=== PATIENT | male | born 1995 | race African-American/Black ===

== ENCOUNTER 2020-06-21 15:58 | Emergency (ER) | payer OTHER ==
--- OUTSIDE RECORDS SUMMARY | 2020-06-21 16:00 | XMS REPORT | Continuity of Care Document ---
:1995 Author Organization [facility] t Address [address] [place] [address] Care Team Providers Name Role Phone Juan BETANCOURT Attending Clinician Problems This patient has no known problems. Allergies, Adverse Reactions, Alerts This patient has no known allergies or adverse reactions. Medications This patient has no known medications. Procedures This patient has no known procedures. Encounters Start End Encounter Admission Attending Care Care Encounter Source Date/Time Date/Time Type Type Clinicians Facility Department ID 2019-03-21 2019-03-21 Office Juan [facility] [id number] 15:09:51 15:38:10 Visit [facility] [id number] [place] [id number] Matt [phone] nal 044 Office Building One Results This patient has no known results.
[2020-06-21 16:31] LABS: Absolute Lymphocytes (CBC) 4.9 K/uL (0.7-4.9); Hematocrit 46.9 % (39.6-49.0); Lymphocytes % 41.1 % (15.3-44.8); MPV 9.3 fL (7.6-11.3); RBC Red Blood Cell Count 5.87 M/uL (4.33-5.43)
[2020-06-21] MEDS ORDERED: NA CHLORIDE 0.9% 1,000 ML ONE (16:41)
[2020-06-21 16:53] LABS: ALT/SGPT 49 U/L (12-78); AST/SGOT 20 U/L (15-37); Albumin 4.2 g/dL (3.4-5.0); Alkaline Phosphatase 81 U/L (45-117); BUN Blood Urea Nitrogen 13 mg/dL (7-18); Bicarbonate 27 mmol/L (21-32); Bilirubin Direct < 0.1 mg/dL (0-0.2); Bilirubin Total 0.3 mg/dL (0.2-1.0); Glucose Level 98 mg/dL (74-106); Lipase 285 U/L (73-393); Potassium 3.6 mmol/L (3.5-5.1); Protein, Total 8.1 g/dL (6.4-8.2); Sodium Level 140 mmol/L (136-145)
--- NOTE | 2020-06-21 18:58 | RAD REPORT ---
EXAM DESCRIPTION: CTAbdomen Pelvis W Contrast - 06/21/2020 6:34 pm CLINICAL HISTORY: Abdominal pain. ABD PAIN COMPARISON: No comparisons TECHNIQUE: Biphasic CT imaging of the abdomen and pelvis was performed with 100 ml non-ionic IV cont rast. All CT scans are performed using dose optimization technique as appropriate and may include automated exposure control or mA/KV adjustment according to patient size. FINDINGS: The lung bases are clear. The liver, spleen, pancreas, adrenal glands and kidneys are within normal limits. No bowel obstruction, free air, free fluid or abscess. Small fat containing umbilical hernia. The gertrude endix is normal. No evidence of significant lymphadenopathy. No suspicious bony findings. IMPRESSION: No acute intra-abdominal or pelvic finding.
--- NOTE | 2020-06-21 19:46 | ER ---
Nurse's Notes [facility] Name: Jai Becker Age: 25 yrs Sex: Male : 1995 Arrival Date: 06/21/2020 Time: 16:00 Bed External Waiting [facility] MD: Diagnosis: Generalized abdominal pain Presentation: 06/21 16:13 Chief complaint: upper abdominal pain x 5 days, unrelieved by Miralax and Pepto x 1. hb Also reports one episode of black stool 2 days ago. Coronavirus screen: At this time, the client does not indicate any symptoms associated with coronavirus-19. Ebola Screen: No symptoms or risks identified at this time. Initial Sepsis Screen: Does the patient meet any 2 criteria? No. Patient's initial sepsis screen is negative. Does the patient have a suspected source of infection? No. Patient's initial sepsis screen is negative. Risk Assessment: Do you want to hurt yourself or someone else? Patient reports no desire to harm self or others. Onset of symptoms was June 16, 2020. 16:13 Method Of Arrival: Ambulatory 16:13 Acuity: ANGELI 3 hb Historical: - Allergies: 16:15 No Known Allergies; hb - Home Meds: 16:15 None [Active]; hb - PMHx: 16:15 None; hb - PSHx: 16:15 None; hb - Immunization history:: Adult Immunizations up to date. - Social history:: Smoking status: Patient denies any tobacco usage or history of. Screenin:08 Abuse screen: Denies threats or abuse. Nutritional screening: No deficits noted. tw2 Tuberculosis screening: No symptoms or risk factors identified. Fall Risk None identified. Assessment: 16:20 General: Appears in no apparent distress. obese, well groomed, Behavior is calm, tw2 cooperative, appropriate for age. Pain: Complains of pain in right upper quadrant and left upper quadrant. Neuro: Level of Consciousness is awake, alert, obeys commands, Oriented to person, place, time, situation. Cardiovascular: Heart tones S1 S2 Capillary refill < 3 seconds Patient's skin is warm and dry. Respiratory: Airway is patent Respiratory effort is even, unlabored, Respiratory pattern is regular, symmetrical, Breath sounds are clear bilaterally. GI: Bowel sounds present X 4 quads. Abd is soft X 4 quads Reports upper abdominal pain. : No signs and/or symptoms were reported regarding the genitourinary system. EENT: No signs and/or symptoms were reported regarding the EENT system. Derm: No signs and/or symptoms reported regarding the dermatologic system. Musculoskeletal: Range of motion: intact in all extremities. 16:54 Reassessment: notified MARLYS Pete tech pt completed drinking oral contrast at this time. tw2 16:56 Reassessment: Patient appears in no apparent distress at this time. No changes from tw2 previously documented assessment. Patient and/or family updated on plan of care and expected duration. Pain level reassessed. Patient is alert, oriented x 3, equal unlabored respirations, skin warm/dry/pink. 18:21 Reassessment: pt in imaging at this time. tw2 18:52 Reassessment: Patient appears in no apparent distress at this time. No changes from tw2 previously documented assessment. Patient and/or family updated on plan of care and expected duration. Pain level reassessed. Patient is alert, oriented x 3, equal unlabored respirations, skin warm/dry/pink. Vital Signs: 16:13 BP 144 / 79; Pulse 97; Resp 16; Temp 97.9; Pulse Ox 98% on R/A; Pain 8/10; hb 16:57 BP 133 / 82; Pulse 98; Resp 20; Pulse Ox 99% on R/A; tw2 18:52 BP 142 / 89; Pulse 79; Resp 17; Pulse Ox 99% on R/A; tw2 ED Course: 16:00 Patient arrived in ED. as 16:07 [facility]C [facility] snw 16:07 Oscar Kaplan MD is Attending Physician. snw 16:08 Bed in low position. Call light in reach. Pulse ox on. NIBP on. tw2 16:08 Arm band placed on. tw2 16:13 Warm blanket given. Pillow given. mh5 16:15 Triage completed. hb 16:25 Tania Simon RN is Primary Nurse. tw2 16:25 Inserted saline lock: 22 gauge in right antecubital area, using aseptic technique. tw2 Blood collected. Missed attempt(s): 20 gauge in left antecubital area. Bleeding controlled, band aid applied, catheter tip intact. 18:33 CT Abd/Pelvis - PO and IV Contrast In Process Unspecified. EDMS 19:00 Report given to FritzRN, Bobbi,RN, and MARGARITO Yeh. tw2 Administered Medications: 16:31 Drug: NS 0.9% 1000 ml Route: IV; Rate: 125 ml/hr; Site: right antecubital; tw2 Outcome: 19:45 Discharge ordered by MD. truong 20:28 Patient left the ED. sg Signatures: Dispatcher [employer] EDMS Benny Chowdary RN RN sg Kianna Bernabe, CLINICAL ACADEMIC ALLERGIST-C CLINICAL ACADEMIC ALLERGIST-Brandonw Kathleen Flood as Lucila Ayon RN RN Tania Simon RN RN 2 Melvi Flood [facility]
--- NOTE | 2020-06-21 19:46 | EDPHYS ---
Physician Documentation [facility] Name: Jai Becker Age: 25 yrs Sex: Male : 1995 Arrival Date: 06/21/2020 Time: 16:00 Bed External Waiting Private MD: ED Physician Oscar Kaplan HPI: 06/21 16:19 This 25 yrs old Black Male presents to ER via Ambulatory with complaints of Abdominal snw Pain. 16:19 The patient presents with abdominal pain in the periumbilical area. Onset: The snw symptoms/episode began/occurred gradually, 4 day(s) ago, and became persistent. The symptoms do not radiate. Associated signs and symptoms: none. The symptoms are described as crampy. Severity of pain: At its worst the pain was moderate. The patient has not experienced similar symptoms in the past. The patient has not recently seen a physician. Historical: - Allergies: 16:15 No Known Allergies; hb - Home Meds: 16:15 None [Active]; hb - PMHx: 16:15 None; hb - PSHx: 16:15 None; hb - Immunization history:: Adult Immunizations up to date. - Social history:: Smoking status: Patient denies any tobacco usage or history of. ROS: 16:19 Constitutional: Negative for fever, chills, and weight loss, Eyes: Negative for injury, snw pain, redness, and discharge, ENT: Negative for injury, pain, and discharge, Neck: Negative for injury, pain, and swelling, Cardiovascular: Negative for chest pain, palpitations, and edema, Respiratory: Negative for shortness of breath, cough, wheezing, and pleuritic chest pain, Back: Negative for injury and pain, : Negative for injury, bleeding, discharge, and swelling, MS/Extremity: Negative for injury and deformity, Skin: Negative for injury, rash, and discoloration, Neuro: Negative for headache, weakness, numbness, tingling, and seizure, Psych: Negative for depression, anxiety, suicide ideation, homicidal ideation, and hallucinations. 16:19 Abdomen/GI: Positive for abdominal pain, constipation, Negative for nausea, vomiting, and diarrhea. Exam: 16:18 Constitutional: This is a well developed, well nourished patient who is awake, alert, snw and in no acute distress. Head/Face: Normocephalic, atraumatic. Eyes: Pupils equal round and reactive to light, extra-ocular motions intact. Lids and lashes normal. Conjunctiva and sclera are non-icteric and not injected. Cornea within normal limits. Periorbital areas with no swelling, redness, or edema. ENT: Nares patent. No nasal discharge, no septal abnormalities noted. Tympanic membranes are normal and external auditory canals are clear. Oropharynx with no redness, swelling, or masses, exudates, or evidence of obstruction, uvula midline. Mucous membranes moist. Neck: Trachea midline, no thyromegaly or masses palpated, and no cervical lymphadenopathy. Supple, full range of motion without nuchal rigidity, or vertebral point tenderness. No Meningismus. Chest/axilla: Normal chest wall appearance and motion. Nontender with no deformity. No lesions are appreciated. Respiratory: Lungs have equal breath sounds bilaterally, clear to auscultation and percussion. No rales, rhonchi or wheezes noted. No increased work of breathing, no retractions or nasal flaring. Back: No spinal tenderness. No costovertebral tenderness. Full range of motion. Skin: Warm, dry with normal turgor. Normal color with no rashes, no lesions, and no evidence of cellulitis. MS/ Extremity: Pulses equal, no cyanosis. Neurovascular intact. Full, normal range of motion. Neuro: Awake and alert, GCS 15, oriented to person, place, time, and situation. Cranial nerves II-XII grossly intact. Motor strength 5/5 in all extremities. Sensory grossly intact. Cerebellar exam normal. Normal gait. Psych: Awake, alert, with orientation to person, place and time. Behavior, mood, and affect are within normal limits. 16:18 Cardiovascular: Rate: tachycardic, Rhythm: regular, Pulses: no pulse deficits are appreciated. 16:18 Abdomen/GI: Inspection: abdomen appears normal, Bowel sounds: hyperactive, in the right lower quadrant and left lower quadrant, Palpation: soft, mild abdominal tenderness, in the umbilical area. Vital Signs: 16:13 BP 144 / 79; Pulse 97; Resp 16; Temp 97.9; Pulse Ox 98% on R/A; Pain 8/10; hb 16:57 BP 133 / 82; Pulse 98; Resp 20; Pulse Ox 99% on R/A; tw2 18:52 BP 142 / 89; Pulse 79; Resp 17; Pulse Ox 99% on R/A; tw2 MDM: 16:07 Patient medically screened. snw 19:51 Data reviewed: vital signs, nurses notes. Data interpreted: Pulse oximetry: on room air snw is 99 %. Interpretation: normal. Counseling: I had a detailed discussion with the patient and/or guardian regarding: the historical points, exam findings, and any diagnostic results supporting the discharge/admit diagnosis, the presence of at least one elevated blood pressure reading (>120/80) during this emergency department visit, lab results, radiology results, the need for outpatient follow up, to return to the emergency department if symptoms worsen or persist or if there are any questions or concerns that arise at home. Special discussion: Based on the history and exam findings, there is no indication for further emergent testing or inpatient evaluation. I discussed with the patient/guardian the need to see the primary care provider for further evaluation of the symptoms. 06/21 16:10 Order name: Basic Metabolic Panel; Complete Time: 16:53 snw 06/21 16:10 Order name: CBC with Diff; Complete Time: 16:37 snw 06/21 16:10 Order name: Hepatic Function; Complete Time: 16:53 snw 06/21 16:10 Order name: Lipase; Complete Time: 16:53 snw 06/21 16:10 Order name: IV Saline Lock; Complete Time: 16:26 snw 06/21 16:10 Order name: Labs collected and sent; Complete Time: 16:26 snw 06/21 16:37 Order name: CT Abd/Pelvis - PO and IV Contrast; Complete Time: 19:16 snw Administered Medications: 16:31 Drug: NS 0.9% 1000 ml Route: IV; Rate: 125 ml/hr; Site: right antecubital; tw2 Disposition: 06/22 07:13 Co-signature as Attending Physician, Oscar Kaplan MD. rn Disposition: 06/21/20 19:45 Discharged to Home. Impression: Generalized abdominal pain. - Condition is Stable. - Discharge Instructions: Abdominal Pain, Adult, Rehydration, Adult, Craig Diet. - Prescriptions for Bentyl 20 mg Oral Tablet - take 1 tablet by ORAL route every 6 hours As needed; 20 tablet. promethazine 25 mg Oral Tablet - take 1 tablet by ORAL route every 6 hours As needed; 20 tablet. - Work release form, Medication Reconciliation Form, Thank You Letter, Antibiotic Education, Prescription Opioid Use form. - Follow up: Emergency Department; When: As needed; Reason: Worsening of condition. Follow up: Private Physician; When: 2 - 3 days; Reason: Recheck today's complaints, Continuance of care, Re-evaluation by your physician. Signatures: Dispatcher [employer] EDMS Benny Chowdary RN RN sg Kianna Bernabe, EXCELLENCE MANAGER-C EXCELLENCE MANAGER-Csnw Oscar Kaplan MD MD rn Baxter, Heather, RN RN Tania Simon RN RN tw2 Corrections: (The following items were deleted from the chart) 06/21 20:28 19:45 06/21/2020 19:45 Discharged to Home. Impression: Generalized abdominal pain. sg Condition is Stable. Forms are Medication Reconciliation Form, Thank You Letter, Antibiotic Education, Prescription Opioid Use. Follow up: Emergency Department; When: As needed; Reason: Worsening of condition. Follow up: Private Physician; When: 2 - 3 days; Reason: Recheck today's complaints, Continuance of care, Re-evaluation by your physician. snw
[2020-06-21 23:28] VITALS: TEMP 97.9
[2020-06-21 23:29] VITALS: O2SAT 99
[2020-06-21 23:32] VITALS: BP 142/89
== END 2020-06-21 20:28 | disposition home or self-care (01) ==
LOC: ER 15:58
DX: R10.84 Generalized abdominal pain (principal)
CPT/HCPCS: 85025; 80048; 36415; 80076; 83690; 74177; 99284; Q9967; J7030

== ENCOUNTER 2020-07-08 23:47 | Emergency (ER) | payer OTHER ==
--- OUTSIDE RECORDS SUMMARY | 2020-07-08 23:49 | XMS REPORT | Continuity of Care Document ---
:1995 Author Organization [facility] t Address [address] [place] [address] Care Team Providers Name Role Phone Juan [...] Clinicians Facility Department ID 2019-03-21 2019-03-21 Office ROSSANA Martinez [id number] 15:09:51 15:38:10 Visit [facility] [id number] [place] [id number] Matt [phone] nal 044 Office Building One Results This patient has no known results.
[2020-07-09 00:49] LABS: Absolute Lymphocytes (CBC) 3.1 K/uL (0.7-4.9); Basophils % 0.3 % (0-1.3); Hematocrit 46.5 % (39.6-49.0); Lymphocytes % 27.8 % (15.3-44.8); MPV 9.5 fL (7.6-11.3)
[2020-07-09 01:01] LABS: ALT/SGPT 52 U/L (12-78); AST/SGOT 26 U/L (15-37); Albumin 4.3 g/dL (3.4-5.0); Alkaline Phosphatase 79 U/L (45-117); BUN Blood Urea Nitrogen 18 mg/dL (7-18); Bicarbonate 28 mmol/L (21-32); Bilirubin Direct < 0.1 mg/dL (0-0.2); Bilirubin Total 0.3 mg/dL (0.2-1.0); Glucose Level 99 mg/dL (74-106); Lipase 282 U/L (73-393); Potassium 4.1 mmol/L (3.5-5.1); Sodium Level 140 mmol/L (136-145)
[2020-07-09] MEDS ORDERED: LIDOCAINE VISCOUS 2% SOLN 15 ML UDC ONE (01:14)
[2020-07-09] MEDS ORDERED: MAGNES/ALUMIN/SIMET 30ML UCUP ONE (01:14)
--- NOTE | 2020-07-09 01:25 | ER ---
Nurse's Notes [facility] Name: Jai Becker Age: 25 yrs Sex: Male : 1995 Arrival Date: 07/08/2020 Time: 23:48 Bed 5 Private MD: Diagnosis: Gastritis, unspecified, without bleeding Presentation: 07/09 00:00 Chief complaint: Patient states: abdominal pain started 7 PM, about 30 minutes ago it rr5 gets worse. denies nausea/vomiting/ diarrhea denies urinary symptoms. been here couple of weeks ago with the same complaint. 00:00 Coronavirus screen: Client denies travel out of the [place] in the last 14 days. At this rr5 time, the client does not indicate any symptoms associated with coronavirus-19. Ebola Screen: Patient negative for fever greater than or equal to 101.5 degrees Fahrenheit, and additional compatible Ebola Virus Disease symptoms Patient denies exposure to infectious person. Patient denies travel to an Ebola-affected area in the 21 days before illness onset. Initial Sepsis Screen: Does the patient meet any 2 criteria? No. Patient's initial sepsis screen is negative. Does the patient have a suspected source of infection? No. Patient's initial sepsis screen is negative. Risk Assessment: Do you want to hurt yourself or someone else? Patient reports no desire to harm self or others. Onset of symptoms was July 09, 2020. 00:00 Method Of Arrival: Ambulatory rr5 00:00 Acuity: ANGELI 4 rr5 Historical: - Allergies: 00:07 No Known Allergies; rr5 - Home Meds: 00:07 None [Active]; rr5 - PMHx: 00:07 None; rr5 - PSHx: 00:07 None; rr5 - Immunization history:: Adult Immunizations up to date. - Social history:: Smoking status: unknown Patient uses alcohol, occasionally. Patient/guardian denies using street drugs. Screenin:33 Abuse screen: Denies threats or abuse. Denies injuries from another. Nutritional rr5 screening: No deficits noted. Tuberculosis screening: No symptoms or risk factors identified. Fall Risk IV access (20 points). Total Cloud Fall Scale indicates No Risk (0-24 pts). Assessment: 00:00 General: Appears in no apparent distress. comfortable, Behavior is calm. rr5 00:00 Pain: Complains of pain in abdomen Pain currently is 6 out of 10 on a pain scale. rr5 Quality of pain is described as aching, Pain began gradually, Is intermittent. Neuro: Level of Consciousness is awake, alert, obeys commands, Oriented to person, place, time, situation. Cardiovascular: Capillary refill < 3 seconds Patient's skin is warm and dry. Respiratory: Airway is patent Respiratory effort is even, unlabored, Respiratory pattern is regular, symmetrical. GI: Abdomen is round non-distended, Abd is soft and non tender X 4 quads. Reports lower abdominal pain, upper abdominal pain, Patient currently denies diarrhea, nausea, vomiting. : Denies urinary symptoms. EENT: No signs and/or symptoms were reported regarding the EENT system. Derm: Skin is intact, is healthy with good turgor, Skin temperature is warm. Musculoskeletal: Circulation, motion, and sensation intact. Capillary refill < 3 seconds. 01:00 Reassessment: Patient appears in no apparent distress at this time. Patient and/or rr5 family updated on plan of care and expected duration. Pain level reassessed. 01:37 Reassessment: Patient appears in no apparent distress at this time. Patient is alert, rr5 oriented x 3, equal unlabored respirations, skin warm/dry/pink. discharge instruction given and explained without complaints made Patient states symptoms have improved. Vital Signs: 00:00 BP 138 / 100; Pulse 87; Resp 16; Temp 98.3; Pulse Ox 100% ; Weight 109 kg; Height 5 ft. rr5 10 in. (177.80 cm); Pain 6/10; 01:15 BP 131 / 90; Pulse 92; Resp 16; Pulse Ox 100% ; rr5 01:37 BP 130 / 70; Pulse 90; Resp 19; Pulse Ox 99% ; rr5 00:00 Body Mass Index 34.48 (109.00 kg, 177.80 cm) rr5 ED Course: 07/08 23:48 Patient arrived in ED. cl3 23:53 Nicolas Ellison MD is Attending Physician. tw4 23:59 Fritz Musa RN is Primary Nurse. rr5 07/09 00:00 Arm band placed on right wrist. rr5 00:07 Triage completed. rr5 00:10 Patient has correct armband on for positive identification. Bed in low position. Call rr5 light in reach. 00:10 Pulse ox on. NIBP on. rr5 00:30 Inserted saline lock: 20 gauge in right forearm, using aseptic technique. Blood rr5 collected. 01:29 Huan Breaux MD is Referral Physician. tw4 01:29 Alexi Crook MD is Referral Physician. tw4 01:29 Alejandro Lemus MD is Referral Physician. tw4 01:38 No provider procedures requiring assistance completed. IV discontinued, intact, rr5 bleeding controlled, No redness/swelling at site. Pressure dressing applied. Administered Medications: 00:59 Drug: GI Cocktail without - (Maalox Suspension 30 ml, Lidocaine Liquid 2 % 15 rr5 ml) Route: PO; 01:27 Follow up: Response: No adverse reaction; Marked relief of symptoms mg2 Outcome: 01:24 Discharge ordered by . tw4 01:38 Discharged to home ambulatory. rr5 01:38 Condition: stable 01:38 Discharge instructions given to patient, Instructed on discharge instructions, follow up and referral plans. medication usage, Demonstrated understanding of instructions, follow-up care, medications, Prescriptions given X 2. 01:38 Patient left the ED. rr5 Signatures: Nicolas Ellison MD MD tw4 Anthony Michel, RN RN mg2 Fritz Musa RN RN rr5 Horacio Harrell cl3
--- NOTE | 2020-07-09 01:26 | EDPHYS ---
Physician Documentation [facility] Name: Jai Becker Age: 25 yrs Sex: Male : 1995 Arrival Date: 07/08/2020 Time: 23:48 Bed 5 Private MD: ED Physician Nicolas Ellison HPI: 07/09 01:11 This 25 yrs old Black Male presents to ER via Ambulatory with complaints of Abdominal tw4 Pain. 01:11 The patient presents with abdominal pain. Onset: The symptoms/episode began/occurred tw4 today. The symptoms do not radiate. Associated signs and symptoms: none. The symptoms are described as dull. Modifying factors: The symptoms are alleviated by nothing, the symptoms are aggravated by nothing. 01:23 The patient has experienced a previous episode, last week. The patient has been tw4 recently seen at the [facility] Emergency Department, for similar complaints labs were performed, CT scan was performed, was given a prescription for an antiemetic, the patient was told to return for a recheck. Historical: - Allergies: 00:07 No Known Allergies; rr5 - Home Meds: 00:07 None [Active]; rr5 - PMHx: 00:07 None; rr5 - PSHx: 00:07 None; rr5 - Immunization history:: Adult Immunizations up to date. - Social history:: Smoking status: unknown Patient uses alcohol, occasionally. Patient/guardian denies using street drugs. ROS: 01:11 Constitutional: Negative for fever, chills, and weight loss, Eyes: Negative for injury, tw4 pain, redness, and discharge, Cardiovascular: Negative for chest pain, palpitations, and edema, Respiratory: Negative for shortness of breath, cough, wheezing, and pleuritic chest pain, Back: Negative for injury and pain, MS/Extremity: Negative for injury and deformity, Skin: Negative for injury, rash, and discoloration. 01:11 Skin: Negative for injury, rash, and discoloration, Neuro: Negative for headache, weakness, numbness, tingling, and seizure. 01:11 Abdomen/GI: Positive for abdominal pain, Negative for nausea and vomiting, nausea, vomiting, and diarrhea, nausea, vomiting, diarrhea, constipation, abdominal cramps, abdominal distension, anorexia, dysphagia, hematemesis, black/tarry stool, rectal pain, rectal bleeding, bowel incontinence, flatulence. Exam: 01:17 Constitutional: This is a well developed, well nourished patient who is awake, alert, tw4 and in no acute distress. Head/Face: Normocephalic, atraumatic. Chest/axilla: Normal chest wall appearance and motion. Nontender with no deformity. No lesions are appreciated. Cardiovascular: Regular rate and rhythm with a normal S1 and S2. No gallops, murmurs, or rubs. Normal PMI, no JVD. No pulse deficits. Respiratory: Lungs have equal breath sounds bilaterally, clear to auscultation and percussion. No rales, rhonchi or wheezes noted. No increased work of breathing, no retractions or nasal flaring. Back: No spinal tenderness. No costovertebral tenderness. Full range of motion. Skin: Warm, dry with normal turgor. Normal color with no rashes, no lesions, and no evidence of cellulitis. MS/ Extremity: Pulses equal, no cyanosis. Neurovascular intact. Full, normal range of motion. Neuro: Awake and alert, GCS 15, oriented to person, place, time, and situation. Cranial nerves II-XII grossly intact. Motor strength 5/5 in all extremities. Sensory grossly intact. Cerebellar exam normal. Normal gait. 01:17 Abdomen/GI: Inspection: abdomen appears normal, Bowel sounds: diminished, Palpation: moderate abdominal tenderness, in the epigastric area and left upper quadrant. Vital Signs: 00:00 BP 138 / 100; Pulse 87; Resp 16; Temp 98.3; Pulse Ox 100% ; Weight 109 kg; Height 5 ft. rr5 10 in. (177.80 cm); Pain 6/10; 01:15 BP 131 / 90; Pulse 92; Resp 16; Pulse Ox 100% ; rr5 01:37 BP 130 / 70; Pulse 90; Resp 19; Pulse Ox 99% ; rr5 00:00 Body Mass Index 34.48 (109.00 kg, 177.80 cm) rr5 MDM: 1215 23:57 Patient medically screened. tw4 07/09 01:18 Data reviewed: vital signs, nurses notes. Data interpreted: Pulse oximetry: tw4 Interpretation: normal. Counseling: I had a detailed discussion with the patient and/or guardian regarding: the historical points, exam findings, and any diagnostic results supporting the discharge/admit diagnosis, lab results. Special discussion: Based on the patient's Hx, exam, and Dx evaluation, there is no indication for emergent surgery or inpatient Tx. It is understood by the patient/guardian that if the Sx's persist or worsen they need to return immediately for re-evaluation. I discussed with the patient/guardian in detail that at this point there is no indication for admission to the hospital. It is understood, however, that if the symptoms persist or worsen the patient needs to return immediately for re-evaluation. 07/08 23:53 Order name: Basic Metabolic Panel; Complete Time: 01:10 07/09 01:11 Interpretation: Within normal limits. 07/08 23:53 Order name: CBC with Diff; Complete Time: 00:55 07/09 00:55 Interpretation: Normal except: WBC 11.2; RBC 5.80; MCH 26.6. 07/08 23:53 Order name: Hepatic Function; Complete Time: 01:10 07/09 01:11 Interpretation: Normal except: GLOB 3.7. 07/08 23:53 Order name: Lipase; Complete Time: 01:10 07/08 23:53 Order name: IV Saline Lock; Complete Time: 00:07/08 23:53 Order name: Labs collected and sent; Complete Time: 00: Administered Medications: 00:59 Drug: GI Cocktail without - (Maalox Suspension 30 ml, Lidocaine Liquid 2 % 15 rr5 ml) Route: PO; 01:27 Follow up: Response: No adverse reaction; Marked relief of symptoms mg2 Disposition: 07/09/20 01:24 Discharged to Home. Impression: Gastritis, unspecified, without bleeding. - Condition is Stable. - Discharge Instructions: Gastritis, Adult. - Prescriptions for Pepcid 20 mg Oral Tablet - take 1 tablet by ORAL route every 12 hours for 10 days; 20 tablet. Bentyl 20 mg Oral Tablet - take 1 tablet by ORAL route every 6 hours As needed; 20 tablet. - Medication Reconciliation Form, Thank You Letter, Antibiotic Education, Prescription Opioid Use form. - Follow up: Private Physician; When: Upon discharge from the Emergency Department; Reason: If symptoms return, Recheck today's complaints, Continuance of care, Re-evaluation by your physician. Follow up: Huan Breaux MD; When: Upon discharge from the Emergency Department; Reason: Recheck today's complaints, Continuance of care, Re-evaluation by your physician. Follow up: Alexi Crook MD; When: Upon discharge from the Emergency Department; Reason: Recheck today's complaints, Continuance of care, Re-evaluation by your physician. Follow up: Alejandro Lemus MD; When: Upon discharge from the Emergency Department; Reason: Recheck today's complaints, Continuance of care, Re-evaluation by your physician. - Problem is an ongoing problem. - Symptoms have improved. Signatures: Dispatcher [employer] EDMS Nicolas Ellison MD MD tw4 Fritz Musa RN RN rr5 Anthony Michel RN mg2 Corrections: (The following items were deleted from the chart) 01: 01:11 The patient has not experienced similar symptoms in the past, tw4 tw4 : 01:24 07/09/2020 01:24 Discharged to Home. Impression: Gastritis, unspecified, without tw4 bleeding. Condition is Stable. Forms are Medication Reconciliation Form, Thank You Letter, Antibiotic Education, Prescription Opioid Use. Follow up: Private Physician; When: Upon discharge from the Emergency Department; Reason: If symptoms return, Recheck today's complaints, Continuance of care, Re-evaluation by your physician. Problem is an ongoing problem. Symptoms have improved. tw4 01:38 01:07/09/2020 01:24 Discharged to Home. Impression: Gastritis, unspecified, without rr5 bleeding. Condition is Stable. Discharge Instructions: Gastritis, Adult. Prescriptions for Pepcid 20 mg Oral Tablet - take 1 tablet by ORAL route every 12 hours for 10 days; 20 tablet, Bentyl 20 mg Oral Tablet - take 1 tablet by ORAL route every 6 hours As needed; 20 tablet. and Forms are Medication Reconciliation Form, Thank You Letter, Antibiotic Education, Prescription Opioid Use. Follow up: Private Physician; When: Upon discharge from the Emergency Department; Reason: If symptoms return, Recheck today's complaints, Continuance of care, Re-evaluation by your physician. Follow up: Huan Breaux; When: Upon discharge from the Emergency Department; Reason: Recheck today's complaints, Continuance of care, Re-evaluation by your physician. Follow up: Alexi Crook; When: Upon discharge from the Emergency Department; Reason: Recheck today's complaints, Continuance of care, Re-evaluation by your physician. Follow up: Alejandro Lemus; When: Upon discharge from the Emergency Department; Reason: Recheck today's complaints, Continuance of care, Re-evaluation by your physician. Problem is an ongoing problem. Symptoms have improved. tw4
[2020-07-10 23:56] VITALS: TEMP 98.3
[2020-07-10 23:58] VITALS: BP 130/70; O2SAT 99
== END 2020-07-09 01:38 | disposition home or self-care (01) ==
LOC: ER 23:47
DX: K29.70 Gastritis, unspecified, without bleeding (principal)
CPT/HCPCS: 36415; 80048; 80076; 83690; 85025; 99284